=== PATIENT | female | born 1950 | race Caucasian/White ===

== ENCOUNTER → 2016-04-15 | Outpatient (REF) | payer MEDICARE ==
[~2016-04-15] MED LIST: BUPR15TA PO; FLUO20CA8 PO; IBUP-1114 PO; RANI15TA PO
[2016-04-16 11:45] LABS: ANION GAP 8 MEQ/L (8-16); BLOOD UREA NITROGEN 19 MG/DL (7-18); CALCIUM LEVEL 8.8 MG/DL (8.8-10.2); CARBON DIOXIDE LEVEL 27 MEQ/L (21-32); CHLORIDE LEVEL 108 MEQ/L (98-107); GLOMERULAR FILTRATION RATE > 60.0 (>45); GLUCOSE, FASTING 84 MG/DL (80-110); POTASSIUM SERUM 3.9 MEQ/L (3.5-5.1); SODIUM LEVEL 143 MEQ/L (136-145)
== END ==
LOC: M SFHCCLAY 11:28
PROVIDERS: ATTEND Family Medicine
DX: R07.81 Pleurodynia (principal)
CPT/HCPCS: 80048; 90670; G0009; G0463

== ENCOUNTER → 2016-04-16 | Outpatient (CLI) | payer MEDICARE ==
[~2016-04-16] MED LIST changes: +ISOVUE-370 76% 100ML VIAL (Q9967) As Ordered ONE
--- NOTE | 2016-04-16 13:18 | REP ---
CT PULMONARY ANGIOGRAM: WITH IV CONTRAST. HISTORY: Pleuritic chest pain and shortness of breath. COMPARISON STUDIES: Comparison is made with prior chest CTs, the most recent of which is from June 10, 2015, and the most remote of which is from August 03, 2014. These prior CTs have shown an irregular 2.8 cm opacity in the right middle lobe. This was previously biopsied. CONTRAST DOSE: 75 mL of Isovue-[address] TECHNIQUE: Helical scanning is acquired and overlapping 1.5 mm and contiguous 3 mm axial images are reformatted. In addition, a 3-D work station is deployed to generate thick slab maximum intensity projection images in sagittal and coronal imaging projections. CT PULMONARY ANGIOGRAPHIC FINDINGS: There is good opacification of the pulmonary arterial tree and thoracic aorta. There is no CT evidence of pulmonary embolism, aortic dissection, or aneurysm. No pleural or pericardial effusion is seen. No hilar or mediastinal mass or adenopathy is observed. There is a very small sliding-type hiatal hernia noted. Gallstones are visible in the lumen of the gallbladder. No adrenal lesion is seen. The previously noted right middle lobe opacity persists. It measures 2.7 cm in greatest dimension today by 1.0 by 1.6 cm. It is unchanged from multiple prior CT studies. No new pulmonary parenchymal opacity is seen. No bony destructive lesion is seen. IMPRESSION: 1. No CT evidence of pulmonary embolus. 2. Stable 2.7 cm irregular soft tissue opacity right middle lobe again seen. 3. Small hiatal hernia. 4. Cholelithiasis. Signed by Triston Keyes MD 04/16/2016 01:32 P
== END ==
LOC: M RAD 11:51
PROVIDERS: ATTEND Family Medicine
DX: R07.81 Pleurodynia (principal); K44.9 Diaphragmatic hernia without obstruction or gangrene; K80.70 Calculus of gallbladder and bile duct without cholecystitis without obstruction
CPT/HCPCS: 71275; Q9967

== ENCOUNTER → 2016-05-04 | Outpatient (CLI) | payer MEDICARE ==
[~2016-05-04] VITALS: Ht 162.6 cm; Wt 90.7 kg
[~2016-05-04] MED LIST changes: -ISOVUE-370 76% 100ML VIAL (Q9967) As Ordered ONE; +LIDOCAINE 2% INJ 100 MG/5 ML SDV (FOR ANES.) As Ordered ONE; +NS 1,000 ML IV SCH; +PROPOFOL 200 MG/20 ML VIAL As Ordered ONE
--- NOTE | 2016-05-04 14:23 | ROOR ---
Patient Name: Kala Salvador Procedure Date: 05/04/2016 2:01 PM Date of : 1950 Age: 66 Room: [facility] Gender: Female Note Status: Finalized Procedure: Colonoscopy to Cecum + Cold Snare Polypectomy Indications: High risk colon cancer surveillance: Personal history of colonic polyps, High risk colon cancer surveillance: Personal history of adenoma with villous component Providers: Winston Brown MD Referring MD: Nils Fuentes MD Requesting Provider: Medicines: Monitored Anesthesia Care Complications: No immediate complications. Procedure: Pre-Anesthesia Assessment: - The heart rate, respiratory rate, oxygen saturations, blood pressure, adequacy of pulmonary ventilation, and response to care were monitored throughout the procedure. The Colonoscope was introduced through the anus and advanced to the cecum, identified by appendiceal orifice and ileocecal valve. The colonoscopy was performed without difficulty. The patient tolerated the procedure well. The quality of the bowel preparation was excellent. Findings: The perianal and digital rectal examinations were normal. Non-bleeding internal hemorrhoids were found during retroflexion. The hemorrhoids were small and Grade I (internal hemorrhoids that do not prolapse). A small polyp was found in the proximal transverse colon. The polyp was sessile. The polyp was removed with a cold snare. Resection and retrieval were complete. The exam was otherwise without abnormality on direct and retroflexion views. Impression: - Non-bleeding internal hemorrhoids. - One small polyp in the proximal transverse colon, removed with a cold snare. Resected and retrieved. - The examination was otherwise normal on direct and retroflexion views. - The exam was otherwise normal to the cecum. Recommendation: - Patient has a contact number available for emergencies. The signs and symptoms of potential delayed complications were discussed with the patient. Return to normal activities tomorrow. Written discharge instructions were provided to the patient. - High fiber diet. - Discharge patient to home. - Continue present medications. - Await pathology results. - Telephone GI clinic for pathology results in 1 week. - Repeat colonoscopy in 5 years for surveillance based on pathology results. - Return to referring physician. - The findings and recommendations were discussed with the patient's family. Winston Brown MD Winston Brown MD 05/04/2016 2:23:38 PM This report has been signed electronically. Number of Addenda: 0 Note Initiated On: 05/04/2016 2:01 PM Estimated Blood Loss: Estimated blood loss: none.
[2016-05-04 14:50] VITALS: BP 131/69
== END | disposition home or self-care (01) ==
LOC: M OPP 13:28
PROVIDERS: ATTEND Internal Medicine Gastroenterology
DX: D12.3 Benign neoplasm of transverse colon (principal); F33.9 Major depressive disorder, recurrent, unspecified; R06.83 Snoring; Z79.899 Other long term (current) drug therapy; Z87.891 Personal history of nicotine dependence; Z88.0 Allergy status to penicillin; Z88.8 Allergy status to other drugs, medicaments and biological substances

== ENCOUNTER → 2017-01-14 | Outpatient (CLI) | payer MEDICARE ==
[~2017-01-14] MED LIST changes: -LIDOCAINE 2% INJ 100 MG/5 ML SDV (FOR ANES.) As Ordered ONE; -NS 1,000 ML IV SCH; -PROPOFOL 200 MG/20 ML VIAL As Ordered ONE
--- NOTE | 2017-01-14 15:16 | REPMRS ---
Patient History The patient states she had a clinical breast exam in 01/01 Patient is postmenopausal. Family history of colorectal cancer in father at age 50 or over. Benign excisional biopsy of the left breast, 1997. Digital Woman Screen Mammo: January 14, 2017 - Exam #: [id number] Bilateral CC and MLO view(s) were taken. Technologist: Carol Keita, Technologist Prior study comparison: January 14, 2016, digital woman screen mammo performed at [facility]. January 04, 2015, digital woman screen mammo performed at [facility]. January 05, 2014, digital woman screen mammo performed at [facility]. FINDINGS: The breast tissue is almost entirely fat. There has been no change in the appearance of the mammogram from the prior studies. There is no interval development of dominant mass, architectural distortion, or clustered microcalcification typical of malignancy. ASSESSMENT: BI-RADS/ACR category 1 mammogram. Negative. Recommendation Routine screening mammogram of both breasts in 1 year (for women over age 40). This mammogram was interpreted with the aid of an FDA-approved computer-aided dectection system. Electronically Signed By: Basil Keyes MD 01/14/17 [id number]
== END ==
LOC: M WHC 14:08
PROVIDERS: ATTEND Nurse Practitioner Women's Health
DX: Z12.31 Encounter for screening mammogram for malignant neoplasm of breast (principal); Z78.0 Asymptomatic menopausal state; Z92.89 Personal history of other medical treatment
CPT/HCPCS: G0101; G0202

== ENCOUNTER → 2017-08-03 | Outpatient (CLI) | payer MEDICARE | LOC: M CLY 11:45 | DX: R05 Cough (principal) | CPT/HCPCS: 71046; G0463 ==

== ENCOUNTER → 2017-08-03 | Outpatient (CLI) | payer MEDICARE | LOC: M CLY 11:40 | DX: R05 Cough (principal); Z53.8 Procedure and treatment not carried out for other reasons ==

== ENCOUNTER → 2017-09-24 | Outpatient (REF) | payer MEDICARE | LOC: M SFHCCLAY 11:16 | DX: N39.0 Urinary tract infection, site not specified (principal) | CPT/HCPCS: 87186 ==

== ENCOUNTER → 2017-10-20 | Outpatient (REF) | payer MEDICARE | LOC: M SFHCWAGY 17:11 | DX: N90.89 Other specified noninflammatory disorders of vulva and perineum (principal) | CPT/HCPCS: 87255 ==

== ENCOUNTER → 2018-01-13 | Outpatient (CLI) | payer MEDICARE | LOC: M WHC 10:39 | DX: Z12.31 Encounter for screening mammogram for malignant neoplasm of breast (principal); Z78.0 Asymptomatic menopausal state; R92.1 Mammographic calcification found on diagnostic imaging of breast; Z92.89 Personal history of other medical treatment; Z80.0 Family history of malignant neoplasm of digestive organs | CPT/HCPCS: 77067 ==

== ENCOUNTER → 2018-04-14 | Outpatient (CLI) | payer MEDICARE ==
--- NOTE | 2018-04-15 15:24 | DEXA ---
AP SPINE L1 - L4 0.995 -1.6 0.0 LT FEMUR TOTAL 0.974 -0.3 1.0 LT NECK 0.886 -1.1 0.5 RT FEMUR TOTAL 0.970 -0.3 1.0 RT NECK 0.898 -1.0 0.6 TOTAL BODY TOTAL OTHER COMMENTS: There is low bone density of the spine and hips. The density of the spine is increased 14.1% since 07/07/2007. The density of the left hip has decreased 3.9% since 07/07/2007. The density of the right hip has decreased 6.9% since 07/07/2007. FOLLOW-UP: Recommendation for the next bone density exam: 2 years. THANIA
== END ==
LOC: M WHC 11:16
PROVIDERS: ATTEND Nurse Practitioner Women's Health
DX: M81.0 Age-related osteoporosis without current pathological fracture (principal); Z78.0 Asymptomatic menopausal state
CPT/HCPCS: 77080; G0463

== ENCOUNTER → 2018-05-24 | Outpatient (CLI) | payer MEDICARE ==
--- NOTE | 2018-05-24 19:40 | REP ---
Low dose screening chest CT: History: Personal history of nicotine dependence. Comparison chest CT study May 19, 2017, April 16, 2016, and June 10 2015. 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 CT findings: The previously noted right middle lobe opacity has increased in size in the interval since the last study of May 19, 2017. It is more solid as well measuring 3.0 x 1.9 centimeters in greatest transverse dimension today, most recently 1.6 x 1.0 cm. This interval change must be considered suspicious. Its margins remain irregular. There are minimal emphysematous changes in the upper lobes. No other pulmonary nodule is appreciated. Impression: The previously noted right middle lobe opacity has increased in size and is now 3.0 cm in greatest diameter consistent with progression. Change must be considered potentially suspicious. Consider repeat histologic sampling. Electronically Signed by Triston Keyes MD 05/24/2018 08:41 P
== END ==
LOC: M RAD 10:11
PROVIDERS: ATTEND Internal Medicine Pulmonary Disease
DX: Z12.2 Encounter for screening for malignant neoplasm of respiratory organs (principal); Z87.891 Personal history of nicotine dependence

== ENCOUNTER → 2018-11-21 | Outpatient (CLI) | payer MEDICARE ==
--- NOTE | 2018-11-21 14:27 | REP ---
CT of the chest without IV contrast for lung nodule. Follow-up: Comparisons are 08/03/2014, 05/19/2017 and 05/24/2018. There is a nodular density in the right middle lobe today measuring 3.0 by 1.6 cm. On 08/03/2014 this nodule measured 3.0 x 1.7 cm. On 05/19/2017 this nodule measured 1.6 by 1.0 cm. The nodule has increased size from 05/19/2017 and is similar in size to 08/03/2014. On a PET scan dated 08/03/2058 nodule was mildly hypermetabolic with a maximum standard uptake value of 3.1. There are no other lung masses or nodules. There are no infiltrates or pleural effusions. There is no mediastinal or axillary lymphadenopathy. The study is insensitive for hilar adenopathy in the absence of IV contrast. The unenhanced thoracic aorta is unremarkable. There is calcified atheroma in the coronary arteries. The cardiac size is normal. Within the visualized upper abdomen. There are multiple gallbladder calculi with ring-shaped calcification, unchanged from the prior studies. There is no adrenal mass. Impression: Right middle lobe lung nodule as described. No adenopathy. Cholelithiasis. Electronically Signed by Dmitriy Bhakta MD 11/21/2018 02:17 P
== END ==
LOC: M RAD 10:59
PROVIDERS: ATTEND Internal Medicine Pulmonary Disease
DX: R91.8 Other nonspecific abnormal finding of lung field (principal)

== ENCOUNTER → 2018-12-20 | Outpatient (CLI) | payer MEDICARE ==
[2018-12-20 15:08] LABS: ALT/SGPT 29 U/L (12-78); BLOOD UREA NITROGEN 17 MG/DL (7-18); CALCIUM LEVEL 8.8 MG/DL (8.8-10.2); CARBON DIOXIDE LEVEL 30 MEQ/L (21-32); CHLORIDE LEVEL 109 MEQ/L (98-107); CHOLESTEROL LEVEL 178 MG/DL (<200); CHOLESTEROL RISK RATIO 3.296 (<5); CREATININE FOR GFR 0.75 MG/DL (0.55-1.30); GLOMERULAR FILTRATION RATE > 60.0 (>45); GLUCOSE, FASTING 87 MG/DL (70-100); HDL CHOLESTEROL 54 MG/DL (>40); LDL CHOLESTEROL 106 MG/DL (<100); NON-HDL-C 124 MG/DL; POTASSIUM SERUM 4.2 MEQ/L (3.5-5.1); SODIUM LEVEL 143 MEQ/L (136-145); TRIGLYCERIDES LEVEL 91 MG/DL (<150)
== END ==
LOC: M LAB 13:37
PROVIDERS: ATTEND Family Medicine
DX: E78.00 Pure hypercholesterolemia, unspecified (principal); I10 Essential (primary) hypertension

== ENCOUNTER → 2019-03-08 | Outpatient (CLI) | payer MEDICARE ==
[~2019-03-08] MED LIST changes: +FLUO20CA20 PO; -FLUO20CA8 PO
--- NOTE | 2019-03-08 16:27 | REPMRS ---
Patient History The patient states she had a clinical breast exam in 02/2019. Family history of colorectal cancer at age 50 or over in father. Benign excisional biopsy of the left breast, 1997. No Hormone Replacement Therapy Digital Woman Screen Mammo: March 08, 2019 - Exam #: [id number] Bilateral CC and MLO view(s) were taken. Technologist: Cecelia Valles, Technologist Prior study comparison: January 13, 2018, bilateral digital woman screen mammo performed at [facility]. January 14, 2017, digital woman screen mammo performed at [facility]. January 14, 2016, digital woman screen mammo performed at [facility]. FINDINGS: There are scattered fibroglandular densities. There has been no change in the appearance of the mammogram from the prior studies. There is a mild amount of scattered fibroglandular density which is fairly symmetric. There is no interval development of dominant mass, architectural distortion, or grouped microcalcification suggestive of malignancy. 3-D tomosynthesis shows no additional findings. Assessment: BI-RADS/ACR category 1 mammogram. Negative Mammogram. Recommendation Routine screening mammogram of both breasts in 1 year (for women over age 40). This patient's Lifetime Breast Cancer Risk is estimated at 3.7 %. This mammogram was interpreted with the aid of an FDA-approved computer-aided dectection system. Electronically Signed By: Basil Keyes MD 03/08/19 1936
== END ==
LOC: M WHC 13:18
PROVIDERS: ATTEND Nurse Practitioner Women's Health
DX: Z01.419 Encounter for gynecological examination (general) (routine) without abnormal findings (principal); Z12.31 Encounter for screening mammogram for malignant neoplasm of breast; Z80.0 Family history of malignant neoplasm of digestive organs; Z86.018 Personal history of other benign neoplasm
CPT/HCPCS: 77063; 77067; G0101

== ENCOUNTER → 2019-08-24 | Outpatient (CLI) | payer MEDICARE ==
[~2019-08-24] MED LIST changes: +ASPI81CH33 PO; +ATOR1TAB19 PO; +CHLO125TA PO; +NOXI1TAB PO; +POTA1TAB23 PO
--- NOTE | 2019-09-06 11:33 | SLEEPCENT ---
DATE OF PROCEDURE: 08/24/2019 ORDERED BY: Amena Horn NP Nocturnal polysomnography was performed for evaluation of sleep physiology in this patient with a history of loud snoring and hypertension. 7 hours 49 minutes of data were reviewed. There were 383 minutes of sleep identified. Sleep latency was prolonged at 27 minutes. Rapid eye movement (REM) latency was prolonged at 138 minutes. Sleep architecture showed fragmentation. There were 2 REM cycles. Overall sleep efficiency 83.2%. The patient's electrocardiogram showed a sinus rhythm with an average heart rate of 68 beats per minute. Electroencephalogram (EEG) showed normal waveforms for awake and sleep. There were 224 respiratory events identified of 10 seconds in duration or greater for an apnea-hypopnea index of 35.1. The events were primarily obstructive. Arousals from respiratory events occurred 5.6 times per hour and oxygen desaturations were seen into the low 70s. There was some activity in the limb leads but limb movement arousal index was only 1.1. IMPRESSION: Severe obstructive sleep apnea syndrome (G47.33). Apnea-hypopnea index 35.1. RECOMMENDATIONS: The patient should be encouraged to return to the sleep disorder center for pressure therapy. In the interim, alcohol and sedative avoidance should be practiced and caution exercised during operation of motor vehicles.
== END ==
LOC: M SLEEP 20:00
PROVIDERS: ATTEND Nurse Practitioner Adult Health
DX: G47.30 Sleep apnea, unspecified (principal)

== ENCOUNTER → 2019-09-21 | Outpatient (CLI) | payer MEDICARE ==
--- NOTE | 2019-10-27 14:22 | SLEEPCENT ---
DATE: 09/21/2019 ORDERED BY: Amena Horn NP Nocturnal polysomnography was performed for the titration of pressure therapy in this patient with obstructive sleep apnea syndrome. Apnea-hypopnea index of 35.1. For testing, the patient was fist with a ResMed F20 full-face mask of small size, 4 cm of water pressure were applied to the circuit, and the lights were extinguished. There was 8 hours and 3 minutes of data reviewed. There was 441.5 minutes of sleep identified. Sleep latency was mildly prolonged at 11 minutes. REM latency was normal at 79 minutes. Sleep architecture was good with 4 REM cycles. Overall sleep efficiency was 92.8%. The electrocardiogram showed a sinus rhythm with an average heart rate of 65 beats per minute. EEG showed normal waveforms for awake and sleep. Respiratory events were fully palliated with CPAP at a pressure of +8. There was some minor limb activity appreciated. IMPRESSION: Obstructive sleep apnea syndrome (G47.33). RECOMMENDATIONS: Nightly use of pressure therapy 8 cm of water. MTDD
== END ==
LOC: M SLEEP 20:00
PROVIDERS: ATTEND Nurse Practitioner Adult Health
DX: G47.33 Obstructive sleep apnea (adult) (pediatric) (principal)

== ENCOUNTER → 2019-10-18 | Outpatient (REF) | payer MEDICARE ==
[2019-10-18 15:04] LABS: ALBUMIN 3.5 GM/DL (3.2-5.2); ALT/SGPT 25 U/L (12-78); BILIRUBIN,TOTAL 0.2 MG/DL (0.2-1.0); BLOOD UREA NITROGEN 22 MG/DL (7-18); CALCIUM LEVEL 8.4 MG/DL (8.8-10.2); CARBON DIOXIDE LEVEL 32 MEQ/L (21-32); CHLORIDE LEVEL 109 MEQ/L (98-107); CHOLESTEROL LEVEL 156 MG/DL (<200); CHOLESTEROL RISK RATIO 3.804 (<5); CREATININE FOR GFR 0.98 MG/DL (0.55-1.30); GLOMERULAR FILTRATION RATE > 60.0 (>45); GLUCOSE, FASTING 108 MG/DL (70-100); HDL CHOLESTEROL 41 MG/DL (>40); IRON (FE) 55 UG/DL (50-170); LDL CHOLESTEROL 93 MG/DL (<100); NON-HDL-C 115 MG/DL; PERCENT SATURATION 18.3 % (13.2-45.0); POTASSIUM SERUM 3.4 MEQ/L (3.5-5.1); SODIUM LEVEL 146 MEQ/L (136-145); TOTAL IRON BINDING CAPACITY 300 UG/DL (250-450); TOTAL PROTEIN 6.5 GM/DL (6.4-8.2); TRIGLYCERIDES LEVEL 108 MG/DL (<150)
[2019-10-18 15:09] LABS: HEMATOCRIT 39.2 % (36.0-47.0); HEMOGLOBIN 12.5 g/dl (12.0-15.5); MEAN CORPUSCULAR HEMOGLOBIN 30.9 pg (27.0-33.0); MEAN CORPUSCULAR HGB CONC 31.9 g/dl (32.0-36.5); MEAN CORPUSCULAR VOLUME 96.8 fl (80.0-96.0); PLATELET COUNT, AUTOMATED 248 10^3/uL (150-450); RED BLOOD COUNT 4.05 10^6/uL (4.00-5.40); WHITE BLOOD COUNT 5.8 10^3/uL (4.0-10.0)
[2019-10-24 12:09] LABS: COPROPORPHYRIN I URINE 11 ug/L (0-15); COPROPORPHYRIN III URINE 3 ug/L (0-49); HEPTACARBOXYLPORPHYRIN URINE 2 ug/L (0-2); HEXACARBOXYLPORPHYRIN URINE <1 ug/L (0-1); PENTACARBOXYLPORPHYRIN URINE <1 ug/L (0-2); UROPORPHYRIN URINE 13 ug/L (0-20)
== END ==
LOC: M LABDRAWC 12:04
PROVIDERS: ATTEND Family Medicine
DX: I10 Essential (primary) hypertension (principal); E78.00 Pure hypercholesterolemia, unspecified; G47.33 Obstructive sleep apnea (adult) (pediatric); R21 Rash and other nonspecific skin eruption
CPT/HCPCS: 36415; 80053; 80061; 83550; 84120; 85027; G0463

== ENCOUNTER → 2019-11-29 | Outpatient (CLI) | payer MEDICARE ==
--- NOTE | 2019-12-04 09:52 | REP ---
NON CONTRAST CHEST CT: 11/29/19. CLINICAL: Follow-up abnormal lung findings. TECHNIQUE: Axial non-contrast images from the thoracic inlet to the upper abdomen with coronal and sagittal reformations. COMPARISON: 11/21/18, 06/10/15. FINDINGS: The somewhat ovoid noncalcified mass in the right middle lobe has decreased in size when compared to recent prior examination and currently measures 2.1 x 1.4cm maximal AP and transverse diameter (previously measuring 3.0 x 1.6cm). While these findings may be decreased from prior examination, a similar density can be traced back through the 06/10/15 examination when measuring 2.8cm maximal AP diameter. The remainder of the lung gil are well aerated and clear. No further consolidation suspicious nodule or mass lesion noted. No pleural effusion or pneumothorax. The tracheobronchial tree is patent. No significant adenopathy noted. Further evaluation of the mediastinum demonstrates minimal atherosclerotic changes to the thoracic aorta and coronary arteries without aortic aneurysm or cardiomegaly. No pericardial effusion. Surrounding musculoskeletal structures demonstrate age related changes without acute osseous abnormality. Limited upper abdomen demonstrates normal bilateral adrenal glands and cholelithiasis. IMPRESSION: 1. Ovoid soft tissue lesion in the right middle lobe has decreased from prior examinations. Remainder of the lung gil are clear. 2. No further acute mediastinal or pleuroparenchymal process appreciated. 3. Cholelithiasis. MTDD
== END ==
LOC: M RAD 09:39
PROVIDERS: ATTEND Internal Medicine Pulmonary Disease
DX: R91.8 Other nonspecific abnormal finding of lung field (principal)

== ENCOUNTER 2019-12-05 18:05 | Emergency (ER) | payer MEDICARE ==
[~2019-12-05] VITALS: Ht 162.6 cm; Wt 101.8 kg
[~2019-12-05 18:05] MED LIST changes: -ASPI81CH33 PO; -ATOR1TAB19 PO; -CHLO125TA PO; -NOXI1TAB PO; -POTA1TAB23 PO
[2019-12-05] MEDS ORDERED: ASPIRIN 81 MG CHEW TABLET PO ONE (18:45)
[2019-12-05 19:10] LABS: BASO # 0.1 10^3/uL (0.0-0.2); BASO % 0.8 % (0.0-1.0); EOS # 0.2 10^3/uL (0.0-0.5); HEMATOCRIT 39.3 % (36.0-47.0); HEMOGLOBIN 12.9 g/dl (12.0-15.5); LYMPH # 1.9 10^3/uL (1.5-5.0); LYMPH % 25.4 % (24.0-44.0); MEAN CORPUSCULAR HEMOGLOBIN 30.6 pg (27.0-33.0); MEAN CORPUSCULAR HGB CONC 32.8 g/dl (32.0-36.5); MEAN CORPUSCULAR VOLUME 93.1 fl (80.0-96.0); MONO # 0.6 10^3/uL (0.0-0.8); MONO % 7.5 % (0.0-5.0); NEUTROPHILS # 4.8 10^3/uL (1.5-8.5); NEUTROPHILS % 62.8 % (36.0-66.0); PLATELET COUNT, AUTOMATED 257 10^3/uL (150-450); RED BLOOD COUNT 4.22 10^6/uL (4.00-5.40); WHITE BLOOD COUNT 7.6 10^3/uL (4.0-10.0)
[2019-12-05 19:20] LABS: INR 0.95; PROTHROMBIN TIME 12.9 SECONDS (12.5-14.3)
[2019-12-05 19:21] LABS: PARTIAL THROMBOPLASTIN TIME 26.2 SECONDS (24.2-38.5)
[2019-12-05] MEDS ORDERED: ATOR1TAB19 PO (19:27)
[2019-12-05] MEDS ORDERED: NOXI1TAB PO (19:27)
[2019-12-05] MEDS ORDERED: ASPI81CH33 PO (19:27)
[2019-12-05] MEDS ORDERED: POTA1TAB23 PO (19:27)
[2019-12-05] MEDS ORDERED: CHLO125TA PO (19:27)
--- NOTE | 2019-12-05 19:28 | REPVR ---
PROCEDURE INFORMATION: Exam: XR Chest, 1 View Exam date and time: 12/05/2019 6:49 PM Age: 69 years old Clinical indication: Shortness of breath; Additional info: Chest pain TECHNIQUE: Imaging protocol: XR of the chest Views: 1 view. COMPARISON: CT Chest without contrast 11/29/2019 9:55 AM (The report from this study was not available for review at the time of this interpretation.) FINDINGS: Lungs: There is a 13 mm nodule in the right middle lobe, which is similar in size compared to the prior CT chest on 11/29/2019. No lung consolidation or pulmonary edema is noted. Pleural space: Unremarkable. No pleural effusion or pneumothorax is identified. Heart/Mediastinum: The cardiac silhouette is top normal in size. The mediastinal contours are unremarkable. Bones/joints: Unremarkable. IMPRESSION: 13 mm nodule in the right middle lobe, which is similar in size compared to the prior CT chest on 11/29/2019. Electronically signed by: Fredy Ochoa On 12/05/2019 19:28:02 PM
[2019-12-05 19:41] LABS: ALBUMIN 3.5 GM/DL (3.2-5.2); ALT/SGPT 25 U/L (12-78); BILIRUBIN,DIRECT 0.1 MG/DL (0.0-0.2); BILIRUBIN,TOTAL 0.3 MG/DL (0.2-1.0); BLOOD UREA NITROGEN 17 MG/DL (7-18); CALCIUM LEVEL 8.8 MG/DL (8.8-10.2); CARBON DIOXIDE LEVEL 30 MEQ/L (21-32); CHLORIDE LEVEL 105 MEQ/L (98-107); CREATININE FOR GFR 0.89 MG/DL (0.55-1.30); FREE T4 0.88 NG/DL (0.76-1.46); GLOMERULAR FILTRATION RATE > 60.0 (>45); GLUCOSE, FASTING 86 MG/DL (70-100); LIPASE 67 U/L (73-393); NT-PRO BNP 36 PG/ML (<125); POTASSIUM SERUM 3.5 MEQ/L (3.5-5.1); SODIUM LEVEL 142 MEQ/L (136-145); TOTAL PROTEIN 6.9 GM/DL (6.4-8.2)
[2019-12-05] MEDS ORDERED: ISOVUE-370 76% 100ML VIAL As Ordered ONE (19:43)
[2019-12-05] MEDS ORDERED: NITROGLYCERIN 0.4 MG SUBL TABLET As Ordered ONE (20:06)
[2019-12-05 20:09] VITALS: BP 188/89
[2019-12-05] MEDS ORDERED: NITROGLYCERIN 0.4 MG SUBL TABLET SL PRN (20:15)
--- NOTE | 2019-12-05 20:26 | REPVR ---
PROCEDURE INFORMATION: Exam: CT Angiography Chest With Contrast Exam date and time: 12/05/2019 7:54 PM Age: 69 years old Clinical indication: Shortness of breath TECHNIQUE: Imaging protocol: Computed tomographic angiography of the chest with intravenous contrast. 3D rendering (Not supervised by radiologist): MIP and/or 3D reconstructed images were created by the technologist. Radiation optimization: All CT scans at this facility use at least one of these dose optimization techniques: automated exposure control; mA and/or kV adjustment per patient size (includes targeted exams where dose is matched to clinical indication); or iterative reconstruction. Contrast material: ISOVUE 370; Contrast volume: 75 ml; Contrast route: INTRAVENOUS (IV); COMPARISON: 1. CT ANGIO CHEST 04/16/2016 12:[address] Chest without contrast 11/29/2019 9:55:[address] Chest without contrast 11/21/2018 11:23:05 AM 4. SR - CT guide needle placement 12/07/2014 9:36:05 AM FINDINGS: Pulmonary arteries: No pulmonary embolism. Aorta: The thoracic aorta is intact and patent. There is no thoracic aortic aneurysm, pseudoaneurysm, penetrating atherosclerotic ulcer, intramural hematoma, or dissection. Great vessels off aortic arch: The brachiocephalic artery, imaged proximal portions of the common carotid arteries, imaged proximal portions of the vertebral arteries, and subclavian arteries are intact. No stenosis or occlusion of these vessels is noted. Tracheobronchial tree: Intact and patent. Lungs: There is a solid pulmonary nodule in the right middle lobe measuring 2 cm in largest anterior to posterior dimension and 1.3 cm in transverse dimension, which is stable compared to the prior CT chest on 11/29/2019 and has decreased in size from 3 cm in anterior to posterior dimension compared to the prior CT chest on 12/01/2018. It measured 2.7 cm in largest anterior to posterior dimension in the prior CTA chest on 04/16/2016. Correlation with the CT-guided biopsy results from 12/07/2014 is recommended. No new pulmonary nodules are noted. The lungs are otherwise clear. No emphysematous changes are present. Pleural space: Normal. No pneumothorax or pleural effusion. Heart: No cardiomegaly or pericardial effusion. The ratio of the diameter of the right ventricle to the diameter of the left ventricle measures less than 1, which is within normal limits and there is no evidence for a right ventricular strain. Mediastinal space: No mediastinal mass, fluid collection, or pneumomediastinum. There is a small sliding hiatal hernia. Lymph nodes: No enlarged lymph nodes. Gallbladder and bile ducts: There are 3 rim calcified gallstones in the gallbladder. No gallbladder wall thickening, pericholecystic fluid, or inflammatory fat stranding is noted around the gallbladder. No dilation of the bile ducts is noted. No calcified stones are seen in the common bile duct. Spleen: The spleen is heterogeneous in appearance, which is likely secondary to the arterial timing of the contrast bolus. No splenomegaly. Adrenals: Normal. No adrenal mass is noted. Bones/joints: There is no fracture or dislocation. No suspicious osteolytic or osteoblastic lesion. There are degenerative changes involving the thoracic spine. Soft tissues: Unremarkable. No soft tissue fluid collection. IMPRESSION: 1. No acute findings in the chest. No pulmonary embolism. 2. Cholelithiasis without CT evidence for cholecystitis. 3. Small sliding hiatal hernia. 4. 2 cm solid pulmonary nodule in the right middle lobe, which is stable compared to the prior CT chest on 11/29/2019 and has decreased in size from 3 cm compared to the prior CT chest on 12/01/2018. Correlation with the CT-guided biopsy results from 12/07/2014 is recommended. FLEISCHNER SOCIETY 2017 GUIDELINES FOR MANAGEMENT OF INCIDENTAL PULMONARY NODULES: Single solid nodule >8 mm: In a low risk patient, consider CT at 3 months, PET/CT, or tissue sampling. In a high risk patient, consider CT at 3 months, PET/CT, or tissue sampling. Certain patients at high risk with suspicious nodule morphology, upper lobe location, or both may warrant 12-month follow-up. High Risk Patients as defined in the 2017 Fleischner Society Guidelines: ?History of heavy smoking ?Exposure to asbestos, radium, or uranium ?Family history of lung cancer ?Emphysema and pulmonary fibrosis (IPF in particular) ?Older age ?Sex (females at greater risk than men) ?Race (Blacks and at higher risk) ?Marginal spiculation / suspicious morphology ?Upper lobe location (also apex) ?Multiple nodules (2-5 nodules highest risk) ?Exceptions, such as technically suboptimal scanning REFERENCE: Mary Alice H, Conor DP, Syl JM, et al. Guidelines for Management of Incidental Pulmonary Nodules Detected on CT images: From the Fleischner Society 2017. Radiology, August 2016;284(1):228-243. http://pubs.rsna.org/doi/pdf/10.1148/radiol.0090599979 Electronically signed by: Fredy Ochoa On 12/05/2019 20:26:20 PM
[2019-12-06 01:43] VITALS: BP 143/61
--- NOTE | 2019-12-06 05:55 | ECGEPIP ---
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
--- NOTE | 2019-12-06 05:59 | ECGEPIP ---
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
--- NOTE | 2019-12-06 13:09 | ED PDOC ---
Post-Departure Follow-Up dr lira faxed formal report of cta chest for fu Gordon Pierce MD Dec 06, 2019 13:09
== END 2019-12-06 01:55 | disposition home or self-care (01) ==
LOC: M ED 18:05
DX: R07.9 Chest pain, unspecified (principal); K44.9 Diaphragmatic hernia without obstruction or gangrene; R91.1 Solitary pulmonary nodule; E78.5 Hyperlipidemia, unspecified; I10 Essential (primary) hypertension; Z87.891 Personal history of nicotine dependence; Z88.1 Allergy status to other antibiotic agents; Z88.8 Allergy status to other drugs, medicaments and biological substances
CPT/HCPCS: 71045; 71275; 80047; 80048; 80076; 83605; 83690; 83880; 84439; 84443; 84484; 85025; 85610; 85730; 93005; 93041; 94760; 99285; Q9967

== ENCOUNTER → 2020-03-26 | Outpatient (CLI) | payer MEDICARE ==
[~2020-03-26] MED LIST changes: +ASPI81CH33 PO; +ATOR1TAB19 PO; +CHLO125TA PO; +NOXI1TAB PO; +POTA1TAB23 PO
--- NOTE | 2020-03-26 12:10 | REPMRS ---
Patient History The patient states she had a clinical breast exam in March 2020. Family history of colorectal cancer at age 50 or over in father. Benign excisional biopsy of the left breast, 1997. No Hormone Replacement Therapy Digital Woman Screen Mammo: March 26, 2020 - Exam #: [id number] Bilateral CC and MLO view(s) were taken. Technologist: RT Renetta Prior study comparison: March 08, 2019, bilateral digital woman screen mammo performed at [facility]. January 13, 2018, bilateral digital woman screen mammo performed at [facility]. January 14, 2017, digital woman screen mammo performed at [facility]. FINDINGS: The breast tissue is almost entirely fat. The Volpara volumetric breast density category is: A. There has been no change in the appearance of the mammogram from the prior studies. There is no interval development of dominant mass, architectural distortion, or grouped microcalcification typical of malignancy. 3-D tomosynthesis shows no additional findings. Assessment: BI-RADS/ACR category 1 mammogram. Negative Mammogram. Recommendation Routine screening mammogram of both breasts in 1 year (for women over age 40). [facility] Lifetime Breast Cancer RIsk is estimated at 3.5 %. This mammogram was interpreted with the aid of an FDA-approved computer-aided dectection system. Electronically Signed By: Basil Keyes MD 03/26/20 [id number]
== END ==
LOC: M WHC 10:28
PROVIDERS: ATTEND Nurse Practitioner Women's Health
DX: Z12.31 Encounter for screening mammogram for malignant neoplasm of breast (principal); Z80.0 Family history of malignant neoplasm of digestive organs; Z86.018 Personal history of other benign neoplasm
CPT/HCPCS: 77063; 77067; G0463

== ENCOUNTER → 2020-11-29 | Outpatient (REF) | payer MEDICARE ==
[2020-11-29 17:05] LABS: ALBUMIN 3.6 GM/DL (3.2-5.2); BILIRUBIN,TOTAL 0.4 MG/DL (0.2-1.0); CALCIUM LEVEL 8.9 MG/DL (8.8-10.2); CHOLESTEROL RISK RATIO 3.568 (<5); CREATININE FOR GFR 0.98 MG/DL (0.55-1.30); GLOMERULAR FILTRATION RATE 59.9 (>45); POTASSIUM SERUM 4.5 MEQ/L (3.5-5.1); THYROID STIMULATING HORMONE 2.13 uIU/ML (0.358-3.740); TOTAL PROTEIN 6.8 GM/DL (6.4-8.2)
== END ==
LOC: M SFHCCLAY 10:57
PROVIDERS: ATTEND Family Medicine
DX: E78.00 Pure hypercholesterolemia, unspecified (principal); I10 Essential (primary) hypertension

== ENCOUNTER → 2020-12-16 | Outpatient (CLI) | payer MEDICARE ==
--- NOTE | 2020-12-16 12:33 | REP ---
INDICATION: SMOKER. COMPARISON: Multiple the latest 12/05/2019 CT angio chest TECHNIQUE: Axial noncontrast images from the thoracic inlet to the upper abdomen using low-dose lung screening technique (LDCT). As per the protocol only lung window images were sent to the read station for interpretation. FINDINGS: Note is again made of a right middle lobe spiculated nodule which today measures 1.8 cm AP by 1 cm in width. This measured 2 cm AP by 1.2 cm in width compared to the latest prior exam. No new abnormal nodules, masses, or opacities have developed. Grossly, the mediastinum and pulmonary sincere are unchanged. Grossly, the imaged upper abdomen and imaged osseous structures are unchanged. Note is again made of cholelithiasis. IMPRESSION: The right middle lobe spiculated nodule has again decreased in size as described above. There are no new abnormal nodules. Due to the size of the spiculated nodule and although it is decreasing in size there is no revised Fleischner society criteria on the recommendation for follow-up of such a finding. Follow-up needs to be based on clinical assessment. <Electronically signed by Mahamed Harris > 12/16/20 [id number]
== END ==
LOC: M RAD 09:55
PROVIDERS: ATTEND Internal Medicine Pulmonary Disease
DX: Z12.2 Encounter for screening for malignant neoplasm of respiratory organs (principal); Z87.891 Personal history of nicotine dependence

== ENCOUNTER → 2021-04-30 | Outpatient (REF) | payer MEDICARE ==
[~2021-04-30] MED LIST changes: +FLUO-96 PO; -FLUO20CA20 PO
[2021-04-30 15:45] LABS: BASO # 0.1 10^3/uL (0.0-0.2); EOS # 0.4 10^3/uL (0.0-0.5); EOS % 5.3 % (0.0-3.0); HEMATOCRIT 39.3 % (36.0-47.0); HEMOGLOBIN 13.1 g/dl (12.0-15.5); LYMPH # 2.3 10^3/uL (1.5-5.0); LYMPH % 32.3 % (24.0-44.0); MEAN CORPUSCULAR HEMOGLOBIN 30.6 pg (27.0-33.0); MEAN CORPUSCULAR HGB CONC 33.3 g/dl (32.0-36.5); MEAN CORPUSCULAR VOLUME 91.8 fl (80.0-96.0); MONO # 0.6 10^3/uL (0.0-0.8); NEUTROPHILS # 3.7 10^3/uL (1.5-8.5); NEUTROPHILS % 52.1 % (36.0-66.0); PLATELET COUNT, AUTOMATED 269 10^3/uL (150-450); RED BLOOD COUNT 4.28 10^6/uL (4.00-5.40)
[2021-04-30 16:07] LABS: ERYTHROCYTE SEDIMENTATION RATE 34 mm/hr (0-30)
[2021-04-30 16:15] LABS: ALBUMIN 3.5 GM/DL (3.2-5.2); BILIRUBIN,TOTAL 0.3 MG/DL (0.2-1.0); C REACTIVE PROTEIN QUANTITATIV 0.53 MG/DL (0.00-0.30); CALCIUM LEVEL 8.5 MG/DL (8.8-10.2); CREATININE FOR GFR 1.04 MG/DL (0.55-1.30); GLOMERULAR FILTRATION RATE 55.8 (>39); POTASSIUM SERUM 4.5 MEQ/L (3.5-5.1); TOTAL PROTEIN 6.7 GM/DL (6.4-8.2)
== END ==
LOC: M SFHCCLAY 09:52
PROVIDERS: ATTEND Physician Assistant
DX: R51.9 Headache, unspecified (principal); Z79.899 Other long term (current) drug therapy

== ENCOUNTER → 2021-05-14 | Outpatient (REF) | payer MEDICARE | LOC: M SFHCCLAY 12:40 | PROVIDERS: ATTEND Physician Assistant | DX: R51.9 Headache, unspecified (principal); M25.50 Pain in unspecified joint ==

== ENCOUNTER → 2021-05-30 | Outpatient (REF) | payer MEDICARE | LOC: M SFHCCLAY 12:21 | PROVIDERS: ATTEND Family Medicine | DX: G44.52 New daily persistent headache (NDPH) (principal) ==

== ENCOUNTER → 2021-09-17 | Outpatient (CLI) | payer MEDICARE ==
[~2021-09-17] MED LIST changes: +SPIR-10 PO; +VITA100093 PO
== END ==
LOC: M WHC 09:20
PROVIDERS: ATTEND Obstetrics & Gynecology
DX: Z12.31 Encounter for screening mammogram for malignant neoplasm of breast (principal)

== ENCOUNTER → 2021-09-23 | Outpatient (CLI) | payer MEDICARE | LOC: M WHC 10:07 | PROVIDERS: ATTEND Obstetrics & Gynecology | DX: Z13.820 Encounter for screening for osteoporosis (principal); M85.89 Other specified disorders of bone density and structure, multiple sites ==

== ENCOUNTER → 2021-09-28 | Outpatient (CLI) | payer MEDICARE | LOC: M LABSMTC 10:29 | PROVIDERS: ATTEND Anesthesiology | DX: Z11.52 Encounter for screening for COVID-19 (principal) ==

== ENCOUNTER 2021-10-01 09:34 | Day surgery (SDC) | payer MEDICARE ==
[~2021-10-01] VITALS: Ht 162.6 cm; Wt 89.7 kg
[~2021-10-01 09:34] MED LIST changes: +NS 1,000 ML IV ONE
[2021-10-01] MEDS ORDERED: propofoL 200 MG/20 ML VIAL As Ordered ONE (11:31)
[2021-10-01] MEDS ORDERED: LIDOCAINE 2% 100MG/5ML SDV (FOR ANES.) As Ordered ONE (11:31)
[2021-10-01 11:45] VITALS: BP 128/55
== END 2021-10-01 11:48 | disposition home or self-care (01) ==
LOC: M OPP 09:34
PROVIDERS: ATTEND Internal Medicine Gastroenterology
DX: Z12.11 Encounter for screening for malignant neoplasm of colon (principal); Z86.010 Personal history of colon polyps; K57.30 Diverticulosis of large intestine without perforation or abscess without bleeding; K64.0 First degree hemorrhoids; G47.33 Obstructive sleep apnea (adult) (pediatric); J84.10 Pulmonary fibrosis, unspecified; F32.9 Major depressive disorder, single episode, unspecified; I10 Essential (primary) hypertension; Z87.891 Personal history of nicotine dependence; Z79.1 Long term (current) use of non-steroidal anti-inflammatories (NSAID); Z79.02 Long term (current) use of antithrombotics/antiplatelets; Z79.899 Other long term (current) drug therapy; Z88.0 Allergy status to penicillin; Z88.8 Allergy status to other drugs, medicaments and biological substances

== ENCOUNTER → 2021-11-28 | Outpatient (REF) | payer MEDICARE ==
[~2021-11-28] MED LIST changes: -NS 1,000 ML IV ONE
[2021-11-28 17:12] LABS: BASO # 0.1 10^3/uL (0.0-0.2); BASO % 0.7 % (0.0-1.0); EOS # 0.3 10^3/uL (0.0-0.5); EOS % 3.6 % (0.0-3.0); HEMATOCRIT 39.1 % (36.0-47.0); HEMOGLOBIN 12.8 g/dl (12.0-15.5); LYMPH # 1.9 10^3/uL (1.5-5.0); LYMPH % 25.2 % (24.0-44.0); MEAN CORPUSCULAR HEMOGLOBIN 31.4 pg (27.0-33.0); MEAN CORPUSCULAR HGB CONC 32.7 g/dl (32.0-36.5); MEAN CORPUSCULAR VOLUME 95.8 fl (80.0-96.0); MONO # 0.6 10^3/uL (0.0-0.8); MONO % 8.5 % (2.0-8.0); NEUTROPHILS # 4.7 10^3/uL (1.5-8.5); NEUTROPHILS % 61.7 % (36.0-66.0); PLATELET COUNT, AUTOMATED 265 10^3/uL (150-450); RED BLOOD COUNT 4.08 10^6/uL (4.00-5.40); WHITE BLOOD COUNT 7.5 10^3/uL (4.0-10.0)
[2021-11-28 17:49] LABS: CHOLESTEROL RISK RATIO 3.229 (<5)
[2021-11-28 17:58] LABS: ALBUMIN 3.8 GM/DL (3.2-5.2); ALT/SGPT 24 U/L (12-78); BILIRUBIN,TOTAL 0.5 MG/DL (0.2-1.0); BLOOD UREA NITROGEN 23 MG/DL (7-18); C REACTIVE PROTEIN QUANTITATIV 0.83 MG/DL (0.00-0.30); CALCIUM LEVEL 9.1 MG/DL (8.8-10.2); CARBON DIOXIDE LEVEL 29 MEQ/L (21-32); CHLORIDE LEVEL 106 MEQ/L (98-107); CREATININE FOR GFR 1.08 MG/DL (0.55-1.30); GLOMERULAR FILTRATION RATE 53.4 (>39); GLUCOSE, FASTING 102 MG/DL (70-100); POTASSIUM SERUM 4.6 MEQ/L (3.5-5.1); SODIUM LEVEL 139 MEQ/L (136-145); TOTAL PROTEIN 7.2 GM/DL (6.4-8.2)
[2021-11-28 18:06] LABS: ERYTHROCYTE SEDIMENTATION RATE 40 mm/hr (0-30)
[2021-12-02 09:21] LABS: TOTAL PROTEIN 7.2 GM/DL (6.4-8.2)
[2021-12-02 11:40] LABS: ALBUMIN 4.14 GM/DL (3.29-5.55); ALBUMIN % 57.5 % (55.8-66.1); ALPHA-1-GLOBULIN % 4.5 % (2.9-4.9); ALPHA-2-GLOBULINS % 12.4 % (7.1-11.8); BETA-1-GLOBULINS % 6.9 % (4.7-7.2); BETA-2-GLOBULINS % 6.6 % (3.2-6.5); GAMMA GLOBULIN % 12.1 % (11.1-18.8)
[2021-12-02 11:41] LABS: ALPHA-1-GLOBULINS 0.32 GM/DL (0.17-0.41); ALPHA-2-GLOBULINS 0.89 GM/DL (0.42-0.99); BETA-2-GLOBULINS 0.48 GM/DL (0.19-0.55); GAMMA GLOBULINS 0.87 GM/DL (0.65-1.58)
== END ==
LOC: M SFHCCLAY 11:47
PROVIDERS: ATTEND Family Medicine
DX: G89.29 Other chronic pain (principal); M54.50 Low back pain, unspecified; E78.00 Pure hypercholesterolemia, unspecified

== ENCOUNTER → 2021-12-01 | Outpatient (CLI) | payer MEDICARE | LOC: M CLY 14:34 | PROVIDERS: ATTEND Family Medicine | DX: M51.36 Other intervertebral disc degeneration, lumbar region (principal); G89.29 Other chronic pain ==

== ENCOUNTER → 2021-12-08 | Outpatient (REF) | payer MEDICARE ==
[2021-12-10 06:50] LABS: ALBUMIN 4.04 GM/DL (3.29-5.55); ALBUMIN % 57.7 % (55.8-66.1); ALPHA-1-GLOBULIN % 4.1 % (2.9-4.9); ALPHA-1-GLOBULINS 0.29 GM/DL (0.17-0.41); ALPHA-2-GLOBULINS 0.91 GM/DL (0.42-0.99); BETA-1-GLOBULINS 0.46 GM/DL (0.28-0.60); BETA-1-GLOBULINS % 6.6 % (4.7-7.2); BETA-2-GLOBULINS 0.44 GM/DL (0.19-0.55); BETA-2-GLOBULINS % 6.3 % (3.2-6.5); GAMMA GLOBULIN % 12.3 % (11.1-18.8); GAMMA GLOBULINS 0.86 GM/DL (0.65-1.58)
== END ==
LOC: M SFHCCLAY 13:32
PROVIDERS: ATTEND Family Medicine
DX: G89.29 Other chronic pain (principal); M54.50 Low back pain, unspecified

== ENCOUNTER → 2021-12-25 | Outpatient (CLI) | payer MEDICARE | LOC: M RAD 13:05 | PROVIDERS: ATTEND Internal Medicine Pulmonary Disease | DX: Z12.2 Encounter for screening for malignant neoplasm of respiratory organs (principal); Z87.891 Personal history of nicotine dependence; R91.8 Other nonspecific abnormal finding of lung field ==

== ENCOUNTER → 2022-06-05 | Outpatient (REF) | payer MEDICARE ==
[2022-06-05 18:00] LABS: ALBUMIN 3.6 G/DL (3.2-5.2); ALKALINE PHOSPHATASE 92 U/L (46-116); ALT/SGPT 28 U/L (7.0-40); AST/SGOT 19 U/L (<34); BILIRUBIN,TOTAL 0.4 MG/DL (0.3-1.2); BLOOD UREA NITROGEN 20 MG/DL (9-23); CALCIUM LEVEL 8.9 MG/DL (8.3-10.6); CARBON DIOXIDE LEVEL 31 MMOL/L (20-31); CHLORIDE LEVEL 106 MMOL/L (98-107); CHOLESTEROL LEVEL 160 MG/DL (<200); CHOLESTEROL RISK RATIO 3.08 (<5); CREATININE FOR GFR 0.94 MG/DL (0.55-1.30); GLOMERULAR FILTRATION RATE > 60.0 (>39); GLUCOSE, FASTING 112 MG/DL (74-106); HDL CHOLESTEROL 51.9 MG/DL (>40); LDL CHOLESTEROL 90.5 MG/DL (<100); NON-HDL-C 108.1 MG/DL; POTASSIUM SERUM 4.4 MMOL/L (3.5-5.1); SODIUM LEVEL 141 MMOL/L (136-145); TOTAL PROTEIN 6.8 G/DL (5.7-8.2); TRIGLYCERIDES LEVEL 88 MG/DL (<150)
[2022-06-05 18:02] LABS: BASO # 0.1 10^3/uL (0.0-0.2); BASO % 0.9 % (0.0-1.0); EOS # 0.3 10^3/uL (0.0-0.5); EOS % 4.4 % (0.0-3.0); HEMATOCRIT 36.2 % (36.0-47.0); HEMOGLOBIN 11.9 g/dl (12.0-15.5); LYMPH # 1.7 10^3/uL (1.5-5.0); LYMPH % 30.9 % (24.0-44.0); MEAN CORPUSCULAR HEMOGLOBIN 31.4 pg (27.0-33.0); MEAN CORPUSCULAR HGB CONC 32.9 g/dl (32.0-36.5); MEAN CORPUSCULAR VOLUME 95.5 fl (80.0-96.0); MONO # 0.5 10^3/uL (0.0-0.8); MONO % 8.3 % (2.0-8.0); NEUTROPHILS # 3.1 10^3/uL (1.5-8.5); NEUTROPHILS % 55.1 % (36.0-66.0); PLATELET COUNT, AUTOMATED 263 10^3/uL (150-450); RED BLOOD COUNT 3.79 10^6/uL (4.00-5.40); WHITE BLOOD COUNT 5.6 10^3/uL (4.0-10.0)
== END ==
LOC: M SFHCCLAY 10:41
PROVIDERS: ATTEND Family Medicine
DX: Z00.00 Encounter for general adult medical examination without abnormal findings (principal); I10 Essential (primary) hypertension; M76.62 Achilles tendinitis, left leg

== ENCOUNTER → 2022-06-05 | Outpatient (CLI) | payer MEDICARE | LOC: M CLY 10:56 | PROVIDERS: ATTEND Family Medicine | DX: M76.62 Achilles tendinitis, left leg (principal) ==

== ENCOUNTER 2022-06-17 17:22 | Inpatient (IN) | payer MEDICARE ==
[~2022-06-17] VITALS: Ht 162.6 cm; Wt 92.1 kg
[2022-06-17 18:08] LABS: VENOUS BASE EXCESS 1.6 (-2.0-2.0); VENOUS HCO3 26.5 MMOL/L (23.0-27.0); VENOUS O2 SATURATION 97.3 % (60.0-80.0); VENOUS PARTIAL PRESSURE CO2 42.9 mmHg (38.0-50.0); VENOUS PARTIAL PRESSURE O2 96.5 mmHg (30.0-50.0); VENOUS PH 7.409 UNITS (7.330-7.430); VENOUS STANDARD HCO3 25.9 MMOL/L; VENOUS TOTAL CO2 27.8 MMOL/L (24.0-28.0)
[2022-06-17 18:12] LABS: BASO # 0.1 10^3/uL (0.0-0.2); BASO % 0.9 % (0.0-1.0); EOS # 0.3 10^3/uL (0.0-0.5); EOS % 4.5 % (0.0-3.0); HEMATOCRIT 34.7 % (36.0-47.0); HEMOGLOBIN 11.4 g/dl (12.0-15.5); LYMPH # 1.8 10^3/uL (1.5-5.0); MEAN CORPUSCULAR HEMOGLOBIN 31.2 pg (27.0-33.0); MEAN CORPUSCULAR HGB CONC 32.9 g/dl (32.0-36.5); MEAN CORPUSCULAR VOLUME 95.1 fl (80.0-96.0); MONO # 0.6 10^3/uL (0.0-0.8); MONO % 9.9 % (2.0-8.0); NEUTROPHILS # 3.1 10^3/uL (1.5-8.5); NEUTROPHILS % 53.4 % (36.0-66.0); PLATELET COUNT, AUTOMATED 261 10^3/uL (150-450); RED BLOOD COUNT 3.65 10^6/uL (4.00-5.40); WHITE BLOOD COUNT 5.8 10^3/uL (4.0-10.0)
[2022-06-17 18:30] LABS: ALBUMIN 3.7 G/DL (3.2-5.2); BILIRUBIN,DIRECT 0.1 MG/DL (<0.4); BILIRUBIN,TOTAL 0.3 MG/DL (0.3-1.2); CALCIUM LEVEL 8.9 MG/DL (8.3-10.6); CREATININE FOR GFR 0.99 MG/DL (0.55-1.30); GLOMERULAR FILTRATION RATE 58.9 (>39); TOTAL PROTEIN 6.5 G/DL (5.7-8.2)
[2022-06-17 18:33] LABS: THYROID STIMULATING HORMONE 4.471 uIU/ML (0.55-4.78)
[2022-06-17] MEDS ORDERED: ISOVUE-370 76% 100ML VIAL As Ordered ONE (20:18)
[2022-06-17] MEDS ORDERED: HOME MED LIST COMPLETE! XX SCH (20:55)
[2022-06-17] MEDS ORDERED: BUPR150T12 PO (20:55)
[2022-06-17] MEDS ORDERED: CHLORTHALIDONE 12.5MG PER 1/2 TABLET PO SCH (21:00)
[2022-06-17] MEDS ORDERED: SPIRONOLACTONE 25 MG TAB PO SCH (21:00)
[2022-06-17] MEDS ORDERED: ASPIRIN 325 MG TAB PO ONE (21:05)
[2022-06-17] MEDS ORDERED: ACETAMINOPHEN 1000MG 100ML IV BAG IV ONE (21:25)
[2022-06-17] MEDS ORDERED: ACETAMINOPHEN TAB 650MG DOSE (2X325MG) PO PRN (22:00)
[2022-06-18] MEDS: FOSFOMYCIN TROMETHAMINE 3 GM POWDER PACKET (MONUROL) PO ONE ×2 (00:19→04:21)
[2022-06-18 06:47] LABS: BLOOD UREA NITROGEN 20 MG/DL (9-23); CALCIUM LEVEL 8.6 MG/DL (8.3-10.6); CARBON DIOXIDE LEVEL 28 MMOL/L (20-31); CHLORIDE LEVEL 106 MMOL/L (98-107); CREATININE FOR GFR 0.92 MG/DL (0.55-1.30); GLOMERULAR FILTRATION RATE > 60.0 (>39); GLUCOSE, FASTING 88 MG/DL (74-106); POTASSIUM SERUM 3.8 MMOL/L (3.5-5.1); SODIUM LEVEL 141 MMOL/L (136-145)
[2022-06-18 07:34] LABS: HEMATOCRIT 34.8 % (36.0-47.0); HEMOGLOBIN 11.6 g/dl (12.0-15.5); MEAN CORPUSCULAR HEMOGLOBIN 31.5 pg (27.0-33.0); MEAN CORPUSCULAR HGB CONC 33.3 g/dl (32.0-36.5); MEAN CORPUSCULAR VOLUME 94.6 fl (80.0-96.0); PLATELET COUNT, AUTOMATED 247 10^3/uL (150-450); RED BLOOD COUNT 3.68 10^6/uL (4.00-5.40); WHITE BLOOD COUNT 6.4 10^3/uL (4.0-10.0)
[2022-06-18 07:35] LABS: CHOLESTEROL LEVEL 145 MG/DL (<200); CHOLESTEROL RISK RATIO 3.32 (<5); HDL CHOLESTEROL 43.6 MG/DL (>40); LDL CHOLESTEROL 78.4 MG/DL (<100); NON-HDL-C 101.4 MG/DL; TRIGLYCERIDES LEVEL 115 MG/DL (<150)
[2022-06-18 08:35] VITALS: BP 116/66
[2022-06-18] MEDS ORDERED: ASPIRIN 81MG CHEW TABLET PO SCH (09:00)
[2022-06-18] MEDS ORDERED: ENOXAPARIN 40MG/0.4ML SYRINGE (J1650 PER 10MG) SC SCH (09:00)
[2022-06-18] MEDS ORDERED: ACET1TAB55 PO (10:05)
[2022-06-18] MEDS ORDERED: ATOR1TAB21 PO (10:05)
[2022-06-18] MEDS ORDERED: ASPI81TAEC PO (10:05)
[2022-06-18 11:19] VITALS: BP 130/74
[2022-06-18 14:00] VITALS: BP 154/75
[2022-06-18] MEDS ORDERED: ATORVASTATIN 10 MG TAB PO SCH ×2 (21:00)
[2022-06-19] MEDS ORDERED: ASPIRIN 81MG ENTERIC TABLET PO SCH (09:00)
== END 2022-06-18 15:50 | disposition home or self-care (01) | DRG 65 ==
LOC: M ED 17:22 → M ED INP 21:13 → CANRESERV 06-18 09:40 → ENRESERV 06-18 09:40 → M MSPAV 06-18 11:26
PROVIDERS: ADMIT Internal Medicine; ATTEND Internal Medicine
PROC: B246ZZZ Ultrasonography of Right and Left Heart (ICD-10-PCS; principal; 2022-06-18)
DX: I63.59 Cerebral infarction due to unspecified occlusion or stenosis of other cerebral artery (principal); N39.0 Urinary tract infection, site not specified; R41.0 Disorientation, unspecified; I10 Essential (primary) hypertension; F32.A Depression, unspecified; E78.00 Pure hypercholesterolemia, unspecified; Z87.891 Personal history of nicotine dependence; Z79.899 Other long term (current) drug therapy; Z88.0 Allergy status to penicillin; Z88.8 Allergy status to other drugs, medicaments and biological substances; R51.9 Headache, unspecified

== ENCOUNTER → 2022-08-27 | Outpatient (REF) | payer MEDICARE ==
[~2022-08-27] MED LIST changes: +ACET1TAB55 PO; +ASPI81TAEC PO; +ATOR1TAB21 PO; +BUPR150T12 PO
[2022-08-27 19:32] LABS: FOLATE 10.3 NG/ML (>5.4)
== END ==
LOC: M LABDRAWC 17:46
PROVIDERS: ATTEND Psychiatry & Neurology Neurology
DX: R26.81 Unsteadiness on feet (principal); R41.0 Disorientation, unspecified; D51.9 Vitamin B12 deficiency anemia, unspecified; E51.9 Thiamine deficiency, unspecified; E53.1 Pyridoxine deficiency; E56.0 Deficiency of vitamin E

== ENCOUNTER → 2022-09-22 | Outpatient (CLI) | payer MEDICARE | LOC: M WHC 13:25 | PROVIDERS: ATTEND Obstetrics & Gynecology | DX: Z12.31 Encounter for screening mammogram for malignant neoplasm of breast (principal) ==

== ENCOUNTER → 2022-12-08 | Outpatient (CLI) | payer MEDICARE | LOC: M CLY 11:21 | PROVIDERS: ATTEND Family Medicine | DX: M54.2 Cervicalgia (principal) ==

== ENCOUNTER → 2023-02-19 | Outpatient (CLI) | payer MEDICARE | LOC: M RAD 15:18 | PROVIDERS: ATTEND Internal Medicine Pulmonary Disease | DX: Z12.2 Encounter for screening for malignant neoplasm of respiratory organs (principal); Z87.891 Personal history of nicotine dependence ==

== ENCOUNTER → 2023-06-08 | Outpatient (REF) | payer MEDICARE ==
[2023-06-08 17:36] LABS: AMORPHOUS SEDIMENT SMALL (NEGATIVE); APPEARANCE, URINE CLEAR (CLEAR); BACTERIA, URINE AUTO NEGATIVE (NEGATIVE); BILIRUBIN, URINE AUTO NEGATIVE (NEGATIVE); BLOOD, URINE BLOOD 1+ (NEGATIVE); COLOR, URINE YELLOW (YELLOW); GLUCOSE, URINE (UA) AUTO NEGATIVE (NEGATIVE); KETONE, URINE AUTO NEGATIVE (NEGATIVE); LEUKOCYTE ESTERASE, URINE AUTO 1+ (NEGATIVE); MUCUS, URINE SMALL (NEGATIVE); NITRITE, URINE AUTO NEGATIVE (NEGATIVE); PROTEIN, URINE AUTO NEGATIVE (NEGATIVE); RBC, URINE AUTO 1 /HPF (0-3); SQUAMOUS EPITHELIAL CELL UR AU 0 /HPF (0-6); UROBILINOGEN, URINE AUTO 0.2 mg/dL (0.0-2.0); WBC, URINE AUTO 25 /HPF (0-3)
[2023-06-08 17:55] LABS: BASO # 0.1 10^3/uL (0.0-0.2); BASO % 0.8 % (0.0-1.0); EOS # 0.3 10^3/uL (0.0-0.5); EOS % 4.4 % (0.0-3.0); HEMOGLOBIN 12.9 g/dl (12.0-15.5); LYMPH # 1.9 10^3/uL (1.5-5.0); LYMPH % 27.8 % (24.0-44.0); MEAN CORPUSCULAR HEMOGLOBIN 30.7 pg (27.0-33.0); MEAN CORPUSCULAR HGB CONC 32.3 g/dl (32.0-36.5); MEAN CORPUSCULAR VOLUME 95.2 fl (80.0-96.0); MONO # 0.6 10^3/uL (0.0-0.8); MONO % 8.6 % (2.0-8.0); NEUTROPHILS # 3.9 10^3/uL (1.5-8.5); NEUTROPHILS % 58.1 % (36.0-66.0); PLATELET COUNT, AUTOMATED 253 10^3/uL (150-450); WHITE BLOOD COUNT 6.7 10^3/uL (4.0-10.0)
[2023-06-08 18:07] LABS: ERYTHROCYTE SEDIMENTATION RATE 30 mm/hr (0-30)
[2023-06-08 18:17] LABS: ALBUMIN 3.6 G/DL (3.2-5.2); ALKALINE PHOSPHATASE 120 U/L (46-116); ALT/SGPT 23 U/L (7.0-40); AST/SGOT 15 U/L (<34); BILIRUBIN,TOTAL 0.2 MG/DL (0.3-1.2); BLOOD UREA NITROGEN 25 MG/DL (9-23); CALCIUM LEVEL 9.2 MG/DL (8.3-10.6); CARBON DIOXIDE LEVEL 31 MMOL/L (20-31); CHLORIDE LEVEL 104 MMOL/L (98-107); CHOLESTEROL LEVEL 143 MG/DL (<200); CHOLESTEROL RISK RATIO 3.06 (<5); CREATININE FOR GFR 0.95 MG/DL (0.55-1.30); GLOMERULAR FILTRATION RATE > 60.0 (>39); GLUCOSE, FASTING 102 MG/DL (74-106); HDL CHOLESTEROL 46.6 MG/DL (>40); NON-HDL-C 96.4 MG/DL; POTASSIUM SERUM 4.4 MMOL/L (3.5-5.1); SODIUM LEVEL 141 MMOL/L (136-145); TOTAL PROTEIN 6.7 G/DL (5.7-8.2); TRIGLYCERIDES LEVEL 67 MG/DL (<150)
== END ==
LOC: M SFHCCLAY 10:44
PROVIDERS: ATTEND Family Medicine
DX: I10 Essential (primary) hypertension (principal); E78.00 Pure hypercholesterolemia, unspecified; M76.62 Achilles tendinitis, left leg; R51.9 Headache, unspecified

== ENCOUNTER → 2023-06-08 | Outpatient (REF) | payer MEDICARE ==
[2023-06-10 14:47] LABS: FOLATE 15.3 NG/ML (>5.4)
== END ==
LOC: M LABDRAWC 14:16
PROVIDERS: ATTEND Psychiatry & Neurology Neurology
DX: D51.9 Vitamin B12 deficiency anemia, unspecified (principal); G45.9 Transient cerebral ischemic attack, unspecified; E78.5 Hyperlipidemia, unspecified

== ENCOUNTER → 2023-09-28 | Outpatient (CLI) | payer MEDICARE | LOC: M WHC 13:10 | PROVIDERS: ATTEND Obstetrics & Gynecology | DX: Z12.31 Encounter for screening mammogram for malignant neoplasm of breast (principal) ==

== ENCOUNTER → 2023-10-12 | Outpatient (CLI) | payer MEDICARE | LOC: M WHC 13:44 | PROVIDERS: ATTEND Obstetrics & Gynecology | DX: M85.851 Other specified disorders of bone density and structure, right thigh (principal); M85.852 Other specified disorders of bone density and structure, left thigh ==

== ENCOUNTER → 2023-12-14 | Outpatient (REF) | payer MEDICARE ==
[2023-12-14 18:01] LABS: BASO % 0.6 % (0.0-1.0); EOS # 0.3 10^3/uL (0.0-0.5); EOS % 3.9 % (0.0-3.0); HEMATOCRIT 40.6 % (36.0-47.0); HEMOGLOBIN 13.2 g/dl (12.0-15.5); LYMPH # 1.9 10^3/uL (1.5-5.0); LYMPH % 29.1 % (24.0-44.0); MEAN CORPUSCULAR HGB CONC 32.5 g/dl (32.0-36.5); MEAN CORPUSCULAR VOLUME 95.3 fl (80.0-96.0); MONO # 0.5 10^3/uL (0.0-0.8); MONO % 7.7 % (2.0-8.0); NEUTROPHILS # 3.7 10^3/uL (1.5-8.5); NEUTROPHILS % 58.4 % (36.0-66.0); PLATELET COUNT, AUTOMATED 216 10^3/uL (150-450); RED BLOOD COUNT 4.26 10^6/uL (4.00-5.40); WHITE BLOOD COUNT 6.4 10^3/uL (4.0-10.0)
[2023-12-14 18:28] LABS: ALBUMIN 3.5 G/DL (3.2-5.2); ALKALINE PHOSPHATASE 112 U/L (35-104); ALT/SGPT 24 U/L (7.0-40); AST/SGOT 12 U/L (<34); BILIRUBIN,TOTAL 0.4 MG/DL (0.3-1.2); BLOOD UREA NITROGEN 20 MG/DL (9-23); CARBON DIOXIDE LEVEL 31 MMOL/L (20-31); CHLORIDE LEVEL 109 MMOL/L (98-107); CREATININE FOR GFR 0.96 MG/DL (0.55-1.30); GLOMERULAR FILTRATION RATE > 60.0 (>39); GLUCOSE, FASTING 111 MG/DL (74-106); POTASSIUM SERUM 4.6 MMOL/L (3.5-5.1); SODIUM LEVEL 143 MMOL/L (136-145); TOTAL PROTEIN 7.2 G/DL (5.7-8.2)
[2023-12-14 18:32] LABS: HEMOGLOBIN A1c 5.5 % (4.0-6.0)
[2023-12-14 19:46] LABS: RSV AMPLIFICATION NEGATIVE (NEGATIVE)
[2023-12-14 20:42] LABS: CHOLESTEROL LEVEL 142 MG/DL (<200); HDL CHOLESTEROL 38.3 MG/DL (>40); LDL CHOLESTEROL 85.7 MG/DL (<100); NON-HDL-C 103.7 MG/DL; TRIGLYCERIDES LEVEL 90 MG/DL (<150)
== END ==
LOC: M SFHCCLAY 09:14
PROVIDERS: ATTEND Family Medicine
DX: I10 Essential (primary) hypertension (principal); E78.00 Pure hypercholesterolemia, unspecified; J06.9 Acute upper respiratory infection, unspecified; R51.9 Headache, unspecified; Z79.899 Other long term (current) drug therapy

== ENCOUNTER → 2024-04-25 | Outpatient (CLI) | payer MEDICARE | LOC: M RAD 12:54 | PROVIDERS: ATTEND Internal Medicine Pulmonary Disease | DX: Z12.2 Encounter for screening for malignant neoplasm of respiratory organs (principal); Z87.891 Personal history of nicotine dependence ==

== ENCOUNTER → 2024-05-08 | Outpatient (REF) | payer MEDICARE | LOC: M LAB REF 16:45 | PROVIDERS: ATTEND Internal Medicine Pulmonary Disease | DX: G47.33 Obstructive sleep apnea (adult) (pediatric) (principal) ==

== ENCOUNTER → 2024-06-13 | Outpatient (REF) | payer MEDICARE ==
[2024-06-13 18:15] LABS: ALBUMIN 3.5 G/DL (3.2-5.2); BILIRUBIN,TOTAL 0.3 MG/DL (0.3-1.2); CHOLESTEROL RISK RATIO 3.51 (<5); CREATININE FOR GFR 0.98 MG/DL (0.55-1.30); HDL CHOLESTEROL 43.3 MG/DL (>40); LDL CHOLESTEROL 90.5 MG/DL (<100); NON-HDL-C 108.7 MG/DL; POTASSIUM SERUM 4.2 MMOL/L (3.5-5.1); TOTAL PROTEIN 6.9 G/DL (5.7-8.2)
[2024-06-13 18:19] LABS: HEMOGLOBIN A1c 5.5 % (4.0-6.0)
== END ==
LOC: M SFHCCLAY 10:33
PROVIDERS: ATTEND Physician Assistant
DX: Z00.00 Encounter for general adult medical examination without abnormal findings (principal); F32.9 Major depressive disorder, single episode, unspecified; E78.00 Pure hypercholesterolemia, unspecified; I10 Essential (primary) hypertension; G47.33 Obstructive sleep apnea (adult) (pediatric)

== ENCOUNTER → 2024-10-11 | Outpatient (CLI) | payer MEDICARE | LOC: M WHC 10:09 | PROVIDERS: ATTEND Physician Assistant | DX: Z12.31 Encounter for screening mammogram for malignant neoplasm of breast (principal) ==

== ENCOUNTER → 2024-10-19 | Outpatient (CLI) | payer MEDICARE | LOC: M WHC 13:59 | PROVIDERS: ATTEND Physician Assistant | DX: Z12.31 Encounter for screening mammogram for malignant neoplasm of breast (principal); R92.313 Mammographic fatty tissue density, bilateral breasts; R92.8 Other abnormal and inconclusive findings on diagnostic imaging of breast ==

== ENCOUNTER → 2024-10-30 | Outpatient (CLI) | payer MEDICARE | LOC: M SOG 07:21 | PROVIDERS: ATTEND Neuromusculoskeletal Medicine, Sports Medicine | DX: M25.562 Pain in left knee (principal) ==

== ENCOUNTER → 2024-11-07 | Outpatient (CLI) | payer MEDICARE | LOC: M WHC 13:01 | PROVIDERS: ATTEND Physician Assistant | DX: Z12.31 Encounter for screening mammogram for malignant neoplasm of breast (principal); R92.8 Other abnormal and inconclusive findings on diagnostic imaging of breast ==

== ENCOUNTER → 2024-11-23 | Outpatient (CLI) | payer MEDICARE ==
[2024-11-23 08:00] VITALS: TEMP 98.1
[2024-11-23 11:22] VITALS: BP 138/86; O2SAT 97
== END ==
LOC: M WHCPRO 07:51
PROVIDERS: ATTEND Physician Assistant
DX: C50.811 Malignant neoplasm of overlapping sites of right female breast (principal); N63.15 Unspecified lump in the right breast, overlapping quadrants; R92.8 Other abnormal and inconclusive findings on diagnostic imaging of breast

== ENCOUNTER → 2024-11-28 | Outpatient (CLI) | payer MEDICARE ==
[2024-11-28 15:56] LABS: VITAMIN B12 LEVEL 609.0 PG/ML (211-911)
[2024-11-28 15:57] LABS: ALT/SGPT 28.0 U/L (7.0-40); AST/SGOT 18.0 U/L (<34); CALCIUM LEVEL 8.9 MG/DL (8.3-10.6); CARBON DIOXIDE LEVEL 28.0 MMOL/L (20-31); CHLORIDE LEVEL 105.0 MMOL/L (98-107); CHOLESTEROL LEVEL 152.0 MG/DL (<200); CHOLESTEROL RISK RATIO 3.36 (<5); CREATININE FOR GFR 0.94 MG/DL (0.55-1.30); GLOMERULAR FILTRATION RATE 64.1 (>39); LDL CHOLESTEROL 85.2 MG/DL (<100); NON-HDL-C 106.8 MG/DL; POTASSIUM SERUM 4.1 MMOL/L (3.5-5.1); SODIUM LEVEL 143.0 MMOL/L (136-145); TRIGLYCERIDES LEVEL 108.0 MG/DL (<150)
[2024-11-28 16:09] LABS: ESTIMATED AVERAGE GLUCOSE 117.0 MG/DL (60-110)
== END ==
LOC: M PLALAB 13:24
PROVIDERS: ATTEND Physician Assistant
DX: Z00.00 Encounter for general adult medical examination without abnormal findings (principal); F32.9 Major depressive disorder, single episode, unspecified; E78.00 Pure hypercholesterolemia, unspecified; I10 Essential (primary) hypertension; G47.33 Obstructive sleep apnea (adult) (pediatric); I65.29 Occlusion and stenosis of unspecified carotid artery; E53.8 Deficiency of other specified B group vitamins; C50.211 Malignant neoplasm of upper-inner quadrant of right female breast; Z86.73 Personal history of transient ischemic attack (TIA), and cerebral infarction without residual deficits; Z79.899 Other long term (current) drug therapy

== ENCOUNTER → 2024-11-30 | Outpatient (CLI) | payer MEDICARE | LOC: M WHC 08:30 | PROVIDERS: ATTEND Surgery | DX: C50.211 Malignant neoplasm of upper-inner quadrant of right female breast (principal); I89.0 Lymphedema, not elsewhere classified ==

== ENCOUNTER → 2024-12-05 | Outpatient (CLI) | payer MEDICARE | LOC: M PLARAD 07:41 | PROVIDERS: ATTEND Surgery | DX: Z01.818 Encounter for other preprocedural examination (principal); C50.211 Malignant neoplasm of upper-inner quadrant of right female breast | CPT/HCPCS: 36415; 71046; 78816; 85027; A9552 ==

== ENCOUNTER → 2024-12-05 | Outpatient (CLI) | payer MEDICARE ==
[2024-12-05 13:28] LABS: PLATELET COUNT, AUTOMATED 261 10^3/uL (150-450)
== END ==
LOC: M PLALAB 09:42
PROVIDERS: ATTEND Physician Assistant
DX: Z01.818 Encounter for other preprocedural examination (principal)

== ENCOUNTER 2024-12-21 10:03 | Observation (INO) | payer MEDICARE ==
[2024-12-21] VITALS (9 sets, daily range): BP systolic 103–133; BP diastolic 50–63; TEMP 97–98.4; O2SAT 93–96
[~2024-12-21] VITALS: Ht 162.6 cm; Wt 99.6 kg
[~2024-12-21 10:03] MED LIST changes: +ACETAMINOPHEN 1000MG/100ML IV BAG As Ordered ONE; +LIDOCAINE 2% 100 MG/5 ML SDV (FOR ANES.) As Ordered ONE; +ONDANSETRON 4MG/2ML VIAL As Ordered ONE; +ROCURONIUM BROMIDE 50MG/5ML VIAL As Ordered ONE; +SUGAMMADEX SODIUM 500 MG/5 ML VIAL As Ordered ONE; +dexAMETHasone 4 MG/ML 1 ML VIAL As Ordered ONE; +dexmedeTOMIDine (4 MCG/ML) 200 MCG/50 ML BTL As Ordered ONE
[2024-12-21] MEDS ORDERED: MIDAZOLAM INJ 2 MG/2 ML VIAL As Ordered ONE (10:09)
[2024-12-21] MEDS ORDERED: HYDROmorphone HCL 2 MG/ML 1 ML VIAL As Ordered ONE (10:09)
[2024-12-21] MEDS: LR 1,000 ML IV SCH (10:15)
[2024-12-21] MEDS ORDERED: DESFLURANE 240 ML INHALANT As Ordered ONE (10:38)
[2024-12-21] MEDS ORDERED: B-12100010 PO (12:38)
[2024-12-21] MEDS ORDERED: HOME MED LIST COMPLETE! XX SCH (12:40)
[2024-12-21] MEDS: ceFAZolin SOD 2 GM IV ONCE IV ONE (13:13)
[2024-12-21] MEDS: METHYLENE BLUE 0.5% (5 MG/ML) 10 ML AMP As Ordered ONE (14:12)
[2024-12-21] MEDS ORDERED: MORPHINE 4 MG/ML 1 ML VIAL IV PRN (16:35)
[2024-12-21] MEDS ORDERED: HYDROMORPHONE HCL 0.5 MG/0.5 ML SYRINGE IV PRN (16:35)
[2024-12-21] MEDS ORDERED: LR 1,000 ML IV SCH (17:10)
[2024-12-21] MEDS ORDERED: ONDANSETRON 4MG/2ML VIAL IV PRN (17:10)
[2024-12-21] MEDS: DOCUSATE SODIUM 100 MG CAPSULE PO SCH (20:34)
[2024-12-21] MEDS: FLUoxetine 20 MG CAP PO SCH (20:34)
[2024-12-21] MEDS: SPIRONOLACTONE 25 MG TAB PO SCH (20:34)
[2024-12-21] MEDS: buPROPion **XL** 150 MG TABLET PO SCH (20:34)
[2024-12-21] MEDS: ceFAZolin SODIUM 2 GM in DEXTROSE 5% (D5W) ADV/MINI-BAG 50 ML IV SCH (20:35)
[2024-12-21] MEDS ORDERED: CHLORTHALIDONE 12.5 MG PER 1/2 TABLET PO SCH (21:00)
[2024-12-21] MEDS: CHLORTHALIDONE 25 MG TAB PO SCH (21:00)
[2024-12-21] MEDS ORDERED: PILL CUTTER 1 EACH XX PRN (21:05)
[2024-12-21] MEDS: ACETAMINOPHEN 325 MG TAB PO PRN (23:13)
[2024-12-22 02:45] VITALS: BP 114/56; TEMP 97.9; O2SAT 92
[2024-12-22 06:45] VITALS: BP 130/63; TEMP 97.2; O2SAT 96
[2024-12-22 10:00] VITALS: BP 118/57; TEMP 97.6; O2SAT 94
[2024-12-22] MEDS ORDERED: OXYC-517 PO (10:13)
== END 2024-12-22 11:28 | disposition home or self-care (01) ==
LOC: M SDC 10:03 → M MS5PR 10:04
PROVIDERS: ADMIT Surgery; ATTEND Surgery
DX: C50.211 Malignant neoplasm of upper-inner quadrant of right female breast (principal); G47.30 Sleep apnea, unspecified; Z88.0 Allergy status to penicillin; Z79.899 Other long term (current) drug therapy; Z87.891 Personal history of nicotine dependence
CPT/HCPCS: 19303; 38525; 38900; 81025; 88305; 88307; 96374; 96376; A9520; G0378; J0131; J0688; J1100; J1171; J2250; J2405; J2765; J3010

== ENCOUNTER → 2025-01-19 | Outpatient (CLI) | payer MEDICARE ==
[~2025-01-19] MED LIST changes: -ACETAMINOPHEN 1000MG/100ML IV BAG As Ordered ONE; +B-12100010 PO; +LETR2.5T2 PO; -LIDOCAINE 2% 100 MG/5 ML SDV (FOR ANES.) As Ordered ONE; -ONDANSETRON 4MG/2ML VIAL As Ordered ONE; +OXYC-517 PO; +RIBO1TAB PO; -ROCURONIUM BROMIDE 50MG/5ML VIAL As Ordered ONE; -SUGAMMADEX SODIUM 500 MG/5 ML VIAL As Ordered ONE; -dexAMETHasone 4 MG/ML 1 ML VIAL As Ordered ONE; -dexmedeTOMIDine (4 MCG/ML) 200 MCG/50 ML BTL As Ordered ONE
== END ==
LOC: M ONCR 11:10
PROVIDERS: ATTEND General Practice
DX: C50.111 Malignant neoplasm of central portion of right female breast (principal); Z17.0 Estrogen receptor positive status [ER+]; Z17.21 Progesterone receptor positive status; Z17.32 Human epidermal growth factor receptor 2 negative status; Z90.11 Acquired absence of right breast and nipple; Z98.51 Tubal ligation status; Z79.899 Other long term (current) drug therapy; Z80.0 Family history of malignant neoplasm of digestive organs; Z80.1 Family history of malignant neoplasm of trachea, bronchus and lung; Z80.52 Family history of malignant neoplasm of bladder; Z80.49 Family history of malignant neoplasm of other genital organs; Z87.891 Personal history of nicotine dependence; Z88.1 Allergy status to other antibiotic agents; Z88.8 Allergy status to other drugs, medicaments and biological substances